=== PATIENT | male | born 1950 | race Caucasian/White ===

== ENCOUNTER 2017-05-12 02:25 | Inpatient (IN) | payer OTHER ==
[2017-05-12] VITALS (7 sets, daily range): BP systolic 117–173; BP diastolic 66–107
[~2017-05-12] VITALS: Ht 175.3 cm; Wt 81.6 kg
--- NOTE | 2017-05-12 03:20 | NUR ---
PRE-ADMISSION VS BP- 136/92 - T- 97.8 P- 96 R-18 PA-11/29 . SpO2 AT 96% IN RA . PATIENT IN INTAKE. AMBULATORY WITH STEADY GAIT. SPEECH IS CLEAR AND ANSWER QUESTIONS APPROPRIATELY. NO KNOWN ALLERGIES. NO SEIZURE HISTORY. PATIENT STATES HE'S HERE FOR OXYCODONE AND ALCOHOL (WHITE WINE). WILL CONTINUE ADMISSION ON 3RD FLOOR
--- NOTE | 2017-05-12 03:43 | NUR ---
ADMISSION NOTE PATIENT IS A 69 YEAR OLD MALE WHO PRESENTS TO [facility] FOR SUPERVISED WITHDRAWAL FROM ETOH/OPIOID DEPENDENCE. HEIGHT IS 5'9 AND WEIGHT IS 180 LBS. BODY CHECK DONE , NO SKIN BREAKDOWN, SKIN INTACT. LUNGS CLEAR AND ABDOMEN SOFT AND BOWEL SOUNDS ACTIVE. RESPIRATION EVEN AND UNLABORED. NO SOB. PATIENT REQUESTED TO BE FULL CODE AND ON VEGAN DIET. HE STATES THAT THIS IS FIRST TIME IN TREATMENT. 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 HE DOES NOT HAVE PCP. PATIENT REPORTS PMH OF SURGERY ON RIGHT BIG TOE. NO SEIZURE HISTORY. SUBSTANCE HISTORY: 1.ALCOHOL (WHITE WINE )- STARTED DRINKING WHEN HE WAS 19 YEARS OLD. HE IS DRINKING 1 BOTTLE DAILY FOR 2 YEARS. LAST DRINKS WAS 3-4 SMALL BOTTLES OF WHITE WINE BEFORE ADMISSION 2.OXYCODONE 5 MG - STARTED USING 2 YEARS AGO. HE TAKES 1 TAB OF 5 MG OCCASIONALLY FOR 2 YEARS. LAST USE WAS 1 TAB OF 5 MG ON 05/08/17 PATIENT DENIES SI/HI. PATIENT SMOKES 1/2 PACK OF CIGARETTE DAILY. PATIENT MODERATELY ANXIOUS, NOTED IRRITABLE , AGITATED C/O RESTLESS LEGS , GENERALIZED BODY ACHES /10, NO N/V. COWS 9 AND CIWA 8. PATIENT REFUSED PNEUMONIA AND FLU VACCINE, EDUCATE PATIENT AND RISKS/BENEFITS EXPLAINED BUT STILL REFUSED. PATIENT ORIENTED TO SURROUNDINGS AND HOW TO USE CALL LIGHT. ON SAFETY MEASURES IN PLACE. CALL LIGHT IN REACH. WILL CONTINUE TO MONITOR.
[2017-05-12] MEDS ORDERED: ONDANSETRON ODT 4 MG TAB.RAPDIS SL PRN (04:00)
[2017-05-12] MEDS ORDERED: LORAZEPAM 2 MG/1 ML VIAL IM PRN (04:00)
[2017-05-12] MEDS ORDERED: THIAMINE HCL 200 MG/2 ML VIAL IM ONE (04:00)
[2017-05-12] MEDS ORDERED: MAG HYDROX/AL HYDROX/SIMETH 30 ML LIQUID UDC PO PRN (04:00)
[2017-05-12] MEDS ORDERED: ONDANSETRON 4 MG/2 ML VIAL IM PRN (04:00)
[2017-05-12] MEDS ORDERED: DICYCLOMINE HCL 20 MG TABLET PO PRN (04:00)
[2017-05-12] MEDS ORDERED: BUPRENORPHINE HCL 2 MG TAB.SUBL SL PRN (04:00)
[2017-05-12] MEDS ORDERED: LORAZEPAM 1 MG TABLET PO PRN (04:00)
[2017-05-12] MEDS ORDERED: MAGNESIUM HYDROXIDE 30 ML LIQUID UDC PO PRN (04:00)
[2017-05-12] MEDS ORDERED: LOPERAMIDE HCL 2 MG CAPSULE PO PRN ×2 (04:00)
[2017-05-12] MEDS ORDERED: MIRALAX 17 GM POWD.PACK PO PRN (04:00)
[2017-05-12 04:34] LABS: *AMPHETAMINE, URINE NEGATIVE (NEGATIVE); *BARBITURATE, URINE NEGATIVE (NEGATIVE); *CANNABINOID, URINE NEGATIVE (NEGATIVE); *COCCAINE, URINE NEGATIVE (NEGATIVE); *OPIATE, URINE NEGATIVE (NEGATIVE); *PHENCYCLIDINE SCREEN,URINE NEGATIVE (NEGATIVE)
[2017-05-12 04:50] LABS: BILIRUBIN,TOTAL 0.3 mg/dL (0.2-1.0); CREATININE 0.8 mg/dL (0.6-1.3); MAGNESIUM 2.2 mg/dL (1.8-2.4); TOTAL PROTEIN, SERUM 7.4 g/dL (6.4-8.2)
[2017-05-12] MEDS: METHOCARBAMOL 750 MG TABLET PO PRN ×2 (04:52→14:21)
[2017-05-12] MEDS: LORAZEPAM 1 MG TABLET PO PRN ×2 (04:52→12:19)
[2017-05-12] MEDS: diphenhydrAMINE 50 MG CAPSULE PO PRN ×2 (04:52→20:35)
--- NOTE | 2017-05-12 04:52 | NUR ---
PRN ATIVAN, BENADRYL AND ROBAXIN ADMINISTRATION PATIENT MODERATELY ANXIOUS, NOTED IRRITABLE , AGITATED C/O RESTLESS LEGS , GENERALIZED BODY ACHES 7/10, NO N/V AND REQUESTED FOR SLEEP AID, COWS 9 AND CIWA 8.
[2017-05-12 05:01] LABS: THYROID STIMULATING HORMONE 1.286 mIU/mL (0.358-3.740)
[2017-05-12] MEDS ORDERED: diphenhydrAMINE 50 MG CAPSULE ONE (05:05)
[2017-05-12] MEDS ORDERED: METHOCARBAMOL 750 MG TABLET ONE (05:06)
[2017-05-12] MEDS ORDERED: LORAZEPAM 1 MG TABLET ONE (05:06)
[2017-05-12 05:10] LABS: BASOPHILS % (AUTO) 0.6 % (0.0-2.0); EOSINOPHILS # (AUTO) 0.2 K/uL (0.0-0.7); EOSINOPHILS % (AUTO) 2.8 % (0.0-7.0); HEMATOCRIT 42.5 % (36.7-47.1); HEMOGLOBIN 14.6 g/dL (12.5-16.3); LYMPHOCYTES # (AUTO) 2.3 K/uL (20.0-40.0); LYMPHOCYTES % (AUTO) 36.7 % (20.5-51.5); MEAN CORPUSCULAR HEMOGLOBIN 35.6 uug (23.8-33.4); MEAN CORPUSCULAR HGB CONC 34 g/dL (32.5-36.3); MEAN CORPUSCULAR VOLUME 103.7 fL (73.0-96.2); MONOCYTES # (AUTO) 0.4 K/uL (2.0-10.0); MONOCYTES % (AUTO) 7.1 % (0.0-11.0); NEUTROPHILS # (AUTO) 3.3 K/uL (1.8-8.9); NEUTROPHILS % (AUTO) 52.8 % (38.5-71.5); PLATELET COUNT (AUTO) 184 K/uL (152-348); WHITE BLOOD COUNT (AUTO) 6.3 K/uL (3.6-10.2)
--- NOTE | 2017-05-12 05:52 | NUR ---
JEREMY BIRD AND ALLEN RE-ASSESSMENT PATIENT ASLEEP AT THIS TIME . CIWA DEFERRED. NO FACIAL GRIMACING. RESPIRATION EVEN AND UNLABORED. SAFETY MEASURES IN PLACE. CALL LIGHT IN REACH. WILL CONTINUE TO MONITOR.
--- NOTE | 2017-05-12 07:21 | NUR ---
END OF SHIFT NOTE PATIENT SLEPT 1 HOUR. FLUID INTAKE OF 500 ML. VOIDED X 1. NO BM. PATIENT WAS GIVEN PRN ATIVAN , ROBAXIN AND BENADRYL. PATIENT REFUSED THIAMINE INJECTION, PNEUMONIA AND FLU VACCINE. EDUCATION PROVIDED REGARDING VACCINE REFUSAL. LAST COWS 9 AND CIWA 8, UPON ADMISSION. ON FALL/SEIZURE PRECAUTION. SAFETY MEASURES IN PLACE CALL LIGHT IN REACH. WILL CONTINUE TO MONITOR.
[2017-05-12] MEDS: MULTIVITAMINS,THERAPEUTIC TABLET PO SCH (08:41)
[2017-05-12] MEDS: FOLIC ACID 1 MG TABLET PO SCH (08:41)
[2017-05-12] MEDS: THIAMINE HCL 100 MG TABLET PO SCH (08:41)
--- NOTE | 2017-05-12 08:41 | NUR ---
PRN ATIVAN Patient's CIWA is 16. PRN ativan 2mg po tabs given. Will continue to monitor patient.
--- NOTE | 2017-05-12 08:45 | NUR ---
START OF SHIFT Received report from rn shift mgr nurse. Patient is 69 year old male admitted for medically supervised withdrawal from alcohol. Patient is full code with NKA. On assessment this AM: CIWA: 16 and COWS: 11. Denies SOB, chest pain. Patients vitals signs WNL. Patient reports increased anxiety and agitation, restlessness, sweating, body aches, and tactile disturbances. Denies stuffy nose, tremors, nausea, vomiting, diarrhea, goosebumps, auditory or visual hallucinations at this time. Compliant with AM meds. PRN Ativan 2mg po tab given with CIWA 16. PPD skin test performed on , to be read on 05/14/17. Tolerated breakfast without n/v and consumed about 50%. Encouraged to attend group meetings today. Will continue to monitor patient. Addendum: 05/12/17 at 1209 by SHU MCCORMACK RN Correction: patient has tremors.
[2017-05-12] MEDS ORDERED: TUBERCULIN,PURIF.PROT.DERIV. 5 TU/0.1 ML TEST ID ONE (09:00)
--- NOTE | 2017-05-12 09:41 | NUR ---
DEFER CIWA REASSESSMENT Patient noted asleep with eyes closed, breathing unlabored. Defer CIWA reassessment at this time.
--- NOTE | 2017-05-12 12:19 | NUR ---
PRN ATIVAN Patient's CIWA IS 12. PRN Ativan 1mg po tab was given. Will continue to monitor patient.
--- NOTE | 2017-05-12 13:19 | NUR ---
REASSESSMENT PRN ATIVAN Greg's CIWA is 8, med effective.
[2017-05-12] MEDS: HYDROXYZINE PAMOATE 25 MG CAPSULE PO PRN (14:21)
--- NOTE | 2017-05-12 14:21 | NUR ---
PRN VITARIL AND ROBAXIN Patinet complains of anxiety and body aches. PRN vistaril and robaxin given.
[2017-05-12] MEDS: LORAZEPAM 1 MG TABLET PO SCH ×3 (14:22→20:35)
[2017-05-12] MEDS ORDERED: GRAP50CA5 PO (14:33)
[2017-05-12] MEDS ORDERED: CYAN-28 PO (14:36)
[2017-05-12] MEDS ORDERED: NEO/5DRO3 EACHEYE (14:36)
[2017-05-12] MEDS ORDERED: LORAZEPAM 1 MG TABLET PO SCH (15:00)
--- NOTE | 2017-05-12 15:21 | NUR ---
REASSESSMENT VISTARIL AND ROBAXIN Patient reports anxiety improved and body aches decreased.
--- NOTE | 2017-05-12 19:00 | NUR ---
Patient reports he has no medical history.
--- NOTE | 2017-05-12 19:27 | NUR ---
END OF SHIFT Patient is 69 year old male admitted for medically supervised withdrawal from alcohol. Patient is full code with NKA. On Ativan taper. Most recent CIWA: 10 and COWS: 9. Reports anxiety, body aches, tremors, tingling sensation. PRN Ativan, vistaril and robaxin given this shift. Ambulating with unsteady gait, uses wheelchair, no falls noted. BM X2 reported with semi liquid, refused prn loperamide when offered. 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
--- NOTE | 2017-05-12 19:30 | NUR ---
Start of Shift Note: Report received from day shift nurse. Pt is 69M, admitted for ETOH Dependence on 05/12/17. Pt was in room on the bed with eyes closed upon start of shift. Pt is AOx4 without s/s of acute distress noted. Respirations even and unlabored. Pt is full code, on regular diet, and on fall/seizure precautions. Pt noted with NKA. Pt reports hx of sx on R big toe. Pt is currently on Ativan taper to manage withdrawal symptoms. Per day shift nurse, last CIWA was 9 at 1600. Bed in lowest position. Side rails up x2. Call light functioning and within reach. All needs attended and met. Will continue to monitor.
--- NOTE | 2017-05-12 20:35 | NUR ---
PRN Benadryl: Pt requested medication to help him sleep. PRN Ativan given as ordered.
[2017-05-12] MEDS: IBUPROFEN 600 MG TABLET PO PRN (22:57)
--- NOTE | 2017-05-12 23:00 | NUR ---
PRN Motrin: Pt c/o headache and general body pain. Pain level 9/10. Pt requested medication for pain. 600mg Motrin PO PRN given as ordered.
[2017-05-13] VITALS (8 sets, daily range): BP systolic 130–190; BP diastolic 93–123
--- NOTE | 2017-05-13 | NUR ---
PRN Motrin Reassessment: Pt stated relief from headache but still complaining of generalized body pain. Pain level 7/10. Will administer PRN medication shortly after taking vitals.
[2017-05-13] MEDS: ACETAMINOPHEN 325 MG TABLET PO PRN ×2 (00:26→08:50)
[2017-05-13] MEDS: METHOCARBAMOL 750 MG TABLET PO PRN ×2 (00:27→08:50)
--- NOTE | 2017-05-13 00:30 | NUR ---
Ativan, Tylenol, and Robaxin PRN: Pt noted with CIWA 13 upon assessment. Ativan 1mg PO PRN given as ordered. Pt c/o generalized body pain. Tylenol and Robaxin PRN given as ordered.
[2017-05-13] MEDS: LORAZEPAM 1 MG TABLET PO PRN (00:33)
--- NOTE | 2017-05-13 01:30 | NUR ---
Ativan, Tylenol, and Robaxin Reassessment: Pt in bed with eyes closed. Respirations even and unlabored. Unable to reassess medication effectiveness. Will continue to monitor.
--- NOTE | 2017-05-13 07:09 | NUR ---
End of Shift Note: Pt is 39M, admitted for Suboxone/Benzo Dependence on 05/11/17. Pt is AOx4 without s/s of acute distress noted. Respirations even and unlabored. Pt is full code, on regular diet, and on fall/seizure precautions. Pt noted with allergy to Penicillins. Pt reports hx of Schizophrenia, Bipolar, and ADHD. Pt is currently on Phenobarbital and Subutex tapers to manage withdrawal symptoms. Last CIWA was 5 at 0400. Pt slept for 8 hours. Pt c/o headache, generalized body pain and inability to sleep. PRN Benadryl, Motrin, Tylenol and Robaxin given and were effective. Bed in lowest position. Side rails up x2. Call light functioning and within reach. All needs attended and met. Will continue to monitor.
--- NOTE | 2017-05-13 07:30 | NUR ---
START OF SHIFT Pt 69 y/o male admitted for etoh/ opioid dependence. Pt received in room on bed with eyes closed resting, but easily arousable to name. Pt alert and oriented to name, place, and time. Perrla. Skin warm and slightly moist to touch. Respirations even and unlabored. Bilateral hand tremors noted slightly. It was reported that pt slept for 8 hours last night. Bed on lowest position with side rails x2 up. Call light within reach. No distress noted at this time.
[2017-05-13] MEDS: THIAMINE HCL 100 MG TABLET PO SCH (08:50)
[2017-05-13] MEDS: MULTIVITAMINS,THERAPEUTIC TABLET PO SCH (08:50)
[2017-05-13] MEDS: FOLIC ACID 1 MG TABLET PO SCH (08:51)
--- NOTE | 2017-05-13 08:55 | NUR ---
PRN Pt with c/o back pain 01/30. Tylenol po prn per MD order given and tolerated well.
--- NOTE | 2017-05-13 08:56 | NUR ---
PRN Pt with c/o body aches 12/30. Robaxin po prn per MD order given and tolerated well.
[2017-05-13] MEDS ORDERED: LORAZEPAM 1 MG TABLET PO SCH (09:00)
--- NOTE | 2017-05-13 09:55 | NUR ---
PRN MARY KATE Pt states body pain 07/30
--- NOTE | 2017-05-13 09:56 | NUR ---
PRN EVAL Pt states body aches 07/30.
[2017-05-13 10:07] LABS: HEPATITIS B SURFACE AG Negative (Negative)
[2017-05-13] MEDS: HYDROXYZINE PAMOATE 25 MG CAPSULE PO PRN (11:52)
--- NOTE | 2017-05-13 11:54 | NUR ---
PRN Pt states feels anxious. Vistaril po prn per MD order given and tolerated well.
--- NOTE | 2017-05-13 12:54 | NUR ---
PRN EVAL Pt still appears anxious. MD aware with changes to ativan taper noted.
[2017-05-13] MEDS: LORAZEPAM 1 MG TABLET PO SCH ×3 (12:58→20:19)
[2017-05-13] MEDS: hydrALAZINE HCL 50 MG TABLET PO PRN (14:06)
[2017-05-13] MEDS: IBUPROFEN 600 MG TABLET PO PRN (14:06)
--- NOTE | 2017-05-13 14:07 | NUR ---
PRN Pt with fd=901/113 p=105. Hydralazine po prn per MD order given and tolerated well.
--- NOTE | 2017-05-13 14:09 | NUR ---
PRN Pt with c/o headache 10/30. Motrin po prn per MD order given and tolerated well.
--- NOTE | 2017-05-13 15:09 | NUR ---
PRN EVAL Pt states headache 07/02
--- NOTE | 2017-05-13 16:47 | NUR ---
Therapist prompted client to attend daily group therapy sessions. Client stated that she would attend.
[2017-05-13] MEDS ORDERED: CLONIDINE HCL 0.1 MG TABLET PO ONE (17:30)
[2017-05-13] MEDS ORDERED: LORAZEPAM 1 MG TABLET PO ONE (17:30)
--- NOTE | 2017-05-13 17:41 | NUR ---
PRN Pt with ciwa=9. notified with new order for ativan 1mg po x1 dose noted and carried out.
--- NOTE | 2017-05-13 17:44 | NUR ---
PRN Pt with in=090/104. aware with new order for catapres 0.1mg po x1 dose , noted and carried out.
--- NOTE | 2017-05-13 18:39 | NUR ---
END OF SHIFT Pt 69 y/o male admitted for etoh/ opioid dependence. Pt alert and oriented to name, place, and time. Perrla. Skin warm and slightly moist to touch. Respirations even and unlabored. Bilateral hand tremor noted. Pt with periods of anxiety throughout the day. Pt observed mostly in recreation room throughout the day. Pt selective with group activity. Pt was seen by MD today. Pt medication compliant and tolerated well. No ASE noted. Bed on lowest position with side rails x2 up for safety. Call light within reach. No distress noted at this time.
--- NOTE | 2017-05-13 18:41 | NUR ---
PRN EVAL Pt with ciwa=4 noted.
--- NOTE | 2017-05-13 18:44 | NUR ---
PRN EVAL Pt with qx=459/99 p=93. made aware.
[2017-05-13] MEDS ORDERED: LABETALOL HCL 100 MG TABLET PO ONE ×2 (19:00→19:15)
--- NOTE | 2017-05-13 19:00 | NUR ---
ONE TIME MD aware of pt kj=277/99 with new order for labetalol 100mg po x1 dose noted and carried out.
--- NOTE | 2017-05-13 20:00 | NUR ---
START OF SHIFT NOTE RECEIVED REPORT FROM DAY SHIFT NURSE. PATIENT IS A 69 YEAR OLD MALE ADMITTED FOR ETOH/OPIOID DEPENDENCE. PATIENT IS ON 4 DAY ATIVAN TAPER. NO SEIZURE HISTORY. PATIENT WAS HYPERTENSIVE DURING THE DAY. PRN HYDRALAZINE, LABETALOL AND CLONIDINE GIVEN. LATEST BP-155/99. PRN TYLENOL, ROBAXIN ,VISTARIL AND ONE TIME ATIVAN. LAST CIWA 4. RECEIVED PATIENT ALERT AND ORIENTED X 4. PATIENT REPORTS ANXIETY, SWEATING AND NOTED WITH TREMORS. NO N/V. DENIES ANY PAIN AT THIS TIME. WILL CONTINUE TO MONITOR.
[2017-05-13] MEDS: diphenhydrAMINE 50 MG CAPSULE PO PRN (22:44)
--- NOTE | 2017-05-13 22:44 | NUR ---
PRN BENADRYL ADMINISTRATION PATIENT REQUESTS FOR SLEEP AID. WILL CONTINUE TO MONITOR .
--- NOTE | 2017-05-13 23:44 | NUR ---
BARBARA LUNA RE-ASSESSMENT PATIENT IN BED WITH HIS EYES CLOSED. RESPIRATION EVEN AND UNLABORED. WILL CONTINUE TO MONITOR.
[2017-05-14] VITALS (8 sets, daily range): BP systolic 106–168; BP diastolic 73–111
--- NOTE | 2017-05-14 | NUR ---
CIWA DEFERRED PATIENT SLEEPING. CIWA DEFERRED. RESPIRATION EVEN AND UNLABORED. SAFETY MEASURES IN PLACE. CALL LIGHT IN REACH. WILL CONTINUE TO MONITOR
--- NOTE | 2017-05-14 04:00 | NUR ---
CIWA DEFERRED PATIENT SLEEPING. CIWA DEFERRED. RESPIRATION EVEN AND UNLABORED. SAFETY MEASURES IN PLACE. CALL LIGHT IN REACH. WILL CONTINUE TO MONITOR
[2017-05-14] MEDS: IBUPROFEN 600 MG TABLET PO PRN ×3 (05:02→20:19)
[2017-05-14] MEDS: METHOCARBAMOL 750 MG TABLET PO PRN ×3 (05:02→22:11)
[2017-05-14] MEDS: HYDROXYZINE PAMOATE 25 MG CAPSULE PO PRN (05:02)
--- NOTE | 2017-05-14 05:02 | NUR ---
PRN VISTARIL, MOTRIN AND ROBAXIN ADMINISTRATION PATIENT C/O ANXIETY AND GENERALIZED BODY ACHES 10/30. WILL MONITOR FOR EFFECTIVENESS
--- NOTE | 2017-05-14 06:02 | NUR ---
PRN VISTARIL, MOTRIN AND ROBAXIN RE-ASSESSMENT PATIENT IN BED WITH HIS EYES CLOSED. RESPIRATION EVEN AND UNLABORED. WILL CONTINUE TO MONITOR
--- NOTE | 2017-05-14 07:22 | NUR ---
END OF SHIFT NOTE PATIENT CONTINUE ON ATIVAN TAPER FOR ETOH/OPIOID DEPENDENCE, TOLERATED WELL AND NO ADVERSE REACTION. PATIENT COMPLIANT WITH MEDICATIONS AND TREATMENT PLAN. PATIENT WAS GIVEN PRN BENADRYL FOR SLEEP AT 2244. PATIENT WOKE UP AT 0502 AND REPORTS ANXIETY AND GENERALIZED BODY ACHES 10/30, PRN VISTARIL , ROBAXIN AND MOTRIN GIVEN. WILL CONTINUE TO MONITOR. SLEPT 8 HOURS. FLUID INTAKE 796 ML. VOIDED X 1 . NO BM. LAST CIWA 5.
[2017-05-14] MEDS: FOLIC ACID 1 MG TABLET PO SCH (08:09)
[2017-05-14] MEDS: LORAZEPAM 1 MG TABLET PO SCH ×3 (08:09→20:18)
[2017-05-14] MEDS: THIAMINE HCL 100 MG TABLET PO SCH (08:09)
[2017-05-14] MEDS: MULTIVITAMINS,THERAPEUTIC TABLET PO SCH (08:09)
--- NOTE | 2017-05-14 08:15 | NUR ---
START OF SHIFT: RECEIVED PT A/O X 4. HE PRESENTS WITH ANXIOUS MOOD AND CONGRUENT AFFECT.HE C/O ANXIETY,RESTLESSNESS AND IRRITABILITY. CIWA 8. ATIVAN TAPER IN PROGRESS TO MANAGE S/S OF W/D. ENCOURAGED INCREASED FLUIDS TO ASSIST IN FACILITATING DETOX PROCESS.WILL CONTINUE TO MONITOR.
[2017-05-14] MEDS ORDERED: LORAZEPAM 1 MG TABLET PO SCH (09:00)
[2017-05-14 09:39] LABS: BILIRUBIN,DIRECT 0.1 mg/dL (0.0-0.2); BILIRUBIN,TOTAL 0.6 mg/dL (0.2-1.0); TOTAL PROTEIN, SERUM 7.5 g/dL (6.4-8.2)
[2017-05-14] MEDS ORDERED: LORAZEPAM 1 MG TABLET PO PRN ×2 (12:00)
[2017-05-14] MEDS: hydrALAZINE HCL 50 MG TABLET PO PRN (12:24)
--- NOTE | 2017-05-14 12:31 | NUR ---
PRN MOTRIN AND PRN ROBAXIN GIVEN FOR REPORTED LOWER BACK PAIN 5/10 ON PAIN SCALE WILL MONITOR EFFECTIVENESS. PRN APRESOLINE GIVEN FOR ELEVATED BP. WILL MONITOR EFFECTIVENESS
[2017-05-14] MEDS ORDERED: PENICILLIN G BENZATHINE 2.4 MMU/4 ML DISP.SYRIN IM ONE (13:00)
--- NOTE | 2017-05-14 13:35 | NUR ---
PRN ROBAXIN AND MOTRIN EFFECTIVE. PT STATES PAIN IS 3/10 ON SCALE.
[2017-05-14] MEDS: ACETAMINOPHEN 325 MG TABLET PO PRN (14:34)
[2017-05-14] MEDS: GABAPENTIN 300 MG CAPSULE PO SCH ×2 (14:34→20:19)
--- NOTE | 2017-05-14 18:52 | NUR ---
END OF SHIFT: PT CONTINUES ON ATIVAN TAPER TO MANAGE S/S OF W/D.LAST CIWA 6. PT IS TREMULOUS AND HAD SOME INTERMITTENT ANXIETY THROUGHOUT THE DAY. HE ALSO C/O LOWER BACK PAIN. MOTRIN AND ROBAXIN PRN GIVEN AND MILDLY EFFECTIVE. HE WAS COMPLIANT WITH REST AND FLUIDS. WILL PASS SHIFT REPORT TO NIGHT NURSE.
--- NOTE | 2017-05-14 20:00 | NUR ---
START OF SHIFT NOTE RECEIVED REPORT FROM DAY SHIFT NURSE. PATIENT IS A 69 YEAR OLD MALE ADMITTED FOR ETOH/OPIOID DEPENDENCE. PATIENT CONTINUE ON MODIFIED ATIVAN TAPER . NO SEIZURE HISTORY. PATIENT ANXIOUS AT TIMES DURING THE DAY AND HYPERTENSIVE. PRN APRESOLINE GIVEN . NEW ORDER OF LABETALOL. PRN GIVEN PRN ROBAXIN AND MOTRIN. RECEIVED PATIENT ALERT AND ORIENTED X 4. RESPIRATION EVEN AND UNLABORED. PATIENT REPORTS ANXIETY, SWEATING, RESTLESS LEGS, NO N/V. ON FALL/SEIZURE PRECAUTION. SAFETY MEASURES IN PLACE. CALL LIGHT IN REACH. WILL CONTINUE TO MONITOR.
--- NOTE | 2017-05-14 20:19 | NUR ---
PRN MOTRIN ADMINISTRATION PATIENT C/O GENERALIZED BODY ACHES 11/29. WILL MONITOR FOR EFFECTIVENESS
[2017-05-14] MEDS ORDERED: AMLODIPINE 5 MG TABLET PO SCH (21:00)
[2017-05-14] MEDS ORDERED: LABETALOL HCL 100 MG TABLET PO SCH (21:00)
--- NOTE | 2017-05-14 21:19 | NUR ---
PRN MOTRIN RE-ASSESSMENT PATIENT STATES MOTRIN IS HELPFUL , PAIN LEVEL IS 3/10 AT THIS TIME. WILL CONTINUE TO MONITOR.
[2017-05-14] MEDS: diphenhydrAMINE 50 MG CAPSULE PO PRN (22:11)
--- NOTE | 2017-05-14 22:11 | NUR ---
PRN ROBAXIN AND BENADRYL ADMINISTRATION PATIENT C/O RESTLESS LEGS AND REQUESTS FOR SLEEP AID. WILL MONITOR FOR EFFECTIVENESS
--- NOTE | 2017-05-14 23:11 | NUR ---
BARBARA LUNA AND ALLEN RE-ASSESSMENT PATIENT IN BED WITH EYES CLOSED. RESPIRATION EVEN AND UNLABORED. WILL CONTINUE TO MONITOR
[2017-05-15] VITALS (7 sets, daily range): BP systolic 119–152; BP diastolic 67–109
--- NOTE | 2017-05-15 | NUR ---
CIWA DEFERRED PATIENT SLEEPING. CIWA DEFERRED. RESPIRATION EVEN AND UNLABORED. SAFETY MEASURES IN PLACE. CALL LIGHT IN REACH. WILL CONTINUE TO MONITOR.
--- NOTE | 2017-05-15 04:00 | NUR ---
CIWA DEFERRED PATIENT SLEEPING. CIWA DEFERRED. RESPIRATION EVEN AND UNLABORED. SAFETY MEASURES IN PLACE. CALL LIGHT IN REACH. WILL CONTINUE TO MONITOR.
--- NOTE | 2017-05-15 07:14 | NUR ---
START OF SHIFT NOTE PATIENT SLEPT 7 HOURS. FLUID INTAKE 1,355 ML. VOIDED X 3. NO BM. PATIENT C/O ANXIETY, RESTLESS LEGS, SWEATING , TREMORS ANS GENERALIZED BODY ACHES BEGINNING OF SHIFT. PATIENT CONTINUE ON ATIVAN TAPER TO MANAGE WITHDRAWAL SYMPTOMS , TOLERATED WELL AND NO ADVERSE REACTION. PRN MOTRIN WAS GIVEN AT FOR GENERALIZED PAIN , ROBAXIN FOR RESTLESS LEGS AND BENADRYL FOR SLEEP. NEW ORDER OF PRN LABETALOL. PATIENT WAS NOT HYPERTENSIVE DURING SHIFT . ON FALL/SEIZURE PRECAUTION. SAFETY MEASURES IN PLACE. CALL LIGHT IN REACH. WILL CONTINUE TO MONITOR
--- NOTE | 2017-05-15 07:25 | NUR ---
START OF SHIFT Rcvd endorsement from ongoing nurse, client is in room, he is a.o x 4, he presents with anxious mood, flat affect, he reports generalized body aches, and muscle pain on lower extremities 9/10, restless legs, irritability, sweats, and a decreased in appetite. Encourage client to increase PO fluid intake as tolerated to facilitate detox. Encourage to attend group therapy for skills to maintain sober. Client is a 70 y/o male admitted to [facility] for withdrawal from alcohol, he is on a 5 day Ativan taper, tolerating well, (day 4). Client reports NKA, Full code, and vegetarian lactoovo diet. Side rails x 2 up/padded. Bed in lowest/locked position. Call light within reach.
[2017-05-15] MEDS: METHOCARBAMOL 750 MG TABLET PO PRN (07:31)
[2017-05-15] MEDS: IBUPROFEN 600 MG TABLET PO PRN ×2 (07:31→20:38)
--- NOTE | 2017-05-15 07:31 | NUR ---
PRN Motrin 600mg PO, Robaxin 750mg PO administered for generalized body aches and muscle pain 01/30. Call light within reach.
[2017-05-15] MEDS: GABAPENTIN 300 MG CAPSULE PO SCH (08:06)
[2017-05-15] MEDS: MULTIVITAMINS,THERAPEUTIC TABLET PO SCH (08:06)
[2017-05-15] MEDS: FOLIC ACID 1 MG TABLET PO SCH (08:06)
[2017-05-15] MEDS: THIAMINE HCL 100 MG TABLET PO SCH (08:06)
[2017-05-15] MEDS: AMLODIPINE 5 MG TABLET PO SCH (08:07)
[2017-05-15] MEDS: LORAZEPAM 1 MG TABLET PO SCH ×4 (08:07→20:38)
--- NOTE | 2017-05-15 08:31 | NUR ---
Reassessment PRN Motrin 600mg PO, Robaxin 750mg PO, he reports relief from generalized body aches and muscle pain 2/10, but tolerable. Call light within reach.
--- NOTE | 2017-05-15 08:44 | NUR ---
Zero induration noted at R forearm TB site
[2017-05-15] MEDS ORDERED: LORAZEPAM 1 MG TABLET PO SCH (09:00)
[2017-05-15] MEDS: ACETAMINOPHEN 325 MG TABLET PO PRN (10:38)
--- NOTE | 2017-05-15 10:38 | NUR ---
PRN Tylenol 650mg PO administered for lower back pain 11/29. Call light within reach.
--- NOTE | 2017-05-15 11:38 | NUR ---
Reassessment PRN Tylenol 650mg PO, client reports relief from lower back pain 0/10. Call light within reach.
[2017-05-15] MEDS ORDERED: KETOROLAC TROMETHAMINE 30 MG INJ IM PRN (12:15)
[2017-05-15] MEDS: hydrALAZINE HCL 50 MG TABLET PO PRN (12:22)
--- NOTE | 2017-05-15 12:22 | NUR ---
PRN Hydralazine 50mg PO administered for BP 152/109, client denies any SCHAEFER or dizziness. Call light within reach.
[2017-05-15] MEDS ORDERED: CYANOCOBALAMIN 1000 MCG/ML VIAL IM ONE (13:00)
--- NOTE | 2017-05-15 13:22 | NUR ---
Reassessment PRN Hydralazine 50mg PO BP 138/94. Call light within reach.
[2017-05-15] MEDS: GABAPENTIN 400 MG CAPSULE PO SCH ×2 (14:34→20:37)
[2017-05-15] MEDS: KETOROLAC TROMETHAMINE 15 MG INJ IM PRN (16:46)
--- NOTE | 2017-05-15 16:46 | NUR ---
PRN Toradol 15mg Inj IM administered to L deltoid for lower back pain 03/01. Call light within reach.
--- NOTE | 2017-05-15 17:16 | NUR ---
Reassessment PRN Toradol 15mg Inj IM client reports relief from lower back pain 2/10, but tolerable. Call light within reach.
--- NOTE | 2017-05-15 19:30 | NUR ---
END OF SHIFT Client is a 70 y/o male, he is a/o X 4, admitted to [facility] for withdrawal from alcohol, he is on a 5 day Ativan taper, tolerating well, (day 4). VTE 2, IPCD at bedside, client is compliant with therapy. PRN Motrin 600mg PO, Robaxin 750mg PO administered for generalized body aches and muscle pain 01/30. Tylenol 650mg PO administered for lower back pain 11/29. Hydralazine 50mg PO administered for BP 152/109, Toradol 15mg Inj IM administered to L deltoid for lower back pain 03/01, noted effective. Client is compliant with medication administration and group therapy. Adequate PO fluid intake 2300mL, void x 5, stool x 1. Client consumes 75-100% of meals. Client reports NKA, Full code, and vegetarian lactoovo diet. Side rails x 2 up/padded. Bed in lowest/locked position. Call light within reach.
--- NOTE | 2017-05-15 19:31 | NUR ---
START OF SHIFT Pt is a 69 y/o male admitted on 05/12/17 for ETOH dependence and occasional oxycodone use. Pt was dependent on 1 bottle of white wine daily for 2 years. Pt is full code, vegan diet, NKA and on fall/seizure precautions. No reported seizure history. No significant PMH. Pt is on a modified Ativan taper that started on 05/15/17, tolerating well. Last CIWA 8 and PRN Toradol, Robaxin, Motrin, Tylenol and Hydralazine administered during day shift. Upon assessment pt presents with anxiety, restless legs, intermittent tremors, difficulty sleeping, increased HR and BP, fatigue, dysphoria and anhedonia. Pt also complains of chronic back pain 01/30. Pt has new order for Baclofen PRN. Medications due. Denies N/V/D. Denies chest pain or SOB. Respirations even and unlabored. Safety measures in place. Call light within reach. Will continue to monitor. Addendum: 05/15/17 at 2202 by JOSE MARTIN REESE RN PT IS A 67 Y/O MALE
[2017-05-15] MEDS: BACLOFEN 20 MG TABLET PO PRN (20:38)
[2017-05-15] MEDS: diphenhydrAMINE 50 MG CAPSULE PO PRN (20:38)
[2017-05-15] MEDS: CLONIDINE HCL 0.1 MG TABLET PO PRN (20:38)
--- NOTE | 2017-05-15 20:38 | NUR ---
PRN BACLOFEN, MOTRIN, BENADRYL AND CLONIDINE ADMINISTRATION Pt reports muscle spasms/pain in lower back and headache. Requests sleep aid for restlessness and insomnia. BP 140/95 and HR 91, orders to give Clonidine for BP 140-149/90-99. Safety measures in place. Call light within reach. Will continue to monitor.
--- NOTE | 2017-05-15 21:38 | NUR ---
PRN BACLOFEN, MOTRIN, BENADRYL AND CLONIDINE REASSESSMENT Pt reports improvement in back muscle spasms and headache. Pt is still awake, but states he is tired and will likely sleep soon. BP 131/77 and HR 83, Clonidine effective in reducing BP. Safety measures in place. Call light within reach. Will continue to monitor.
[2017-05-16] VITALS (8 sets, daily range): BP systolic 111–159; BP diastolic 66–103
--- NOTE | 2017-05-16 | NUR ---
CIWA DEFERRED Pt laying in bed with eyes closed, CIWA deferred, to be assessed when pt is awake per orders. Respirations 16, even and unlabored. Safety measures in place. Call light within reach. Will continue to monitor.
--- NOTE | 2017-05-16 04:00 | NUR ---
CIWA DEFERRED AND VITALS REFUSED Pt laying in bed with eyes closed, CIWA deferred, to be assessed when pt is awake per orders. Vitals refused. Respirations 16, even and unlabored. Safety measures in place. Call light within reach. Will continue to monitor.
[2017-05-16] MEDS: HYDROXYZINE PAMOATE 25 MG CAPSULE PO PRN ×2 (04:54→22:38)
[2017-05-16] MEDS: ACETAMINOPHEN 325 MG TABLET PO PRN (04:54)
--- NOTE | 2017-05-16 05:02 | NUR ---
PRN VISTARIL AND TYLENOL ADMINISTRATION Pt reports he woke up and presents with anxiety. Pt also complains of lower back pain 11/29. Safety measures in place. Call light within reach. Will continue to monitor.
--- NOTE | 2017-05-16 06:02 | NUR ---
PRN VISTARIL AND TYLENOL REASSESSMENT Pt is laying in bed with eyes closed. Respirations 16, even and unlabored. Safety measures in place. Call light within reach. Will continue to monitor.
--- NOTE | 2017-05-16 07:17 | NUR ---
END OF SHIFT Pt is a 67 y/o male admitted on 05/12/17 for ETOH dependence and occasional oxycodone use. Pt was dependent on 1 bottle of white wine daily for 2 years. Pt is full code, vegan diet, NKA and on fall/seizure precautions. No reported seizure history. No significant PMH. Pt is on a modified Ativan taper that started on 05/15/17, tolerating well. VTE score 2, pumps in place. Pt presented with anxiety, restless legs, intermittent tremors, difficulty sleeping, increased HR and BP, fatigue, dysphoria and anhedonia. Pt also complained of chronic back pain 01/30. Scheduled medications and PRN Baclofen, Motrin, Benadryl, Tylenol, Vistaril and Clonidine administered, effective in S/S of withdrawal as verbalized by pt. Last CIWA 6 at 1999. Pt slept 9 hours. Intake 796 ml, void x 3, stool x 0. Safety measures in place. Call light within reach. Pts needs have been met. Endorsed to day shift nurse.
--- NOTE | 2017-05-16 07:18 | NUR ---
Start of Shift Notes: Received patient in his room. Alert and verbally responsive. Oriented x 4 Able to make his needs known. Respirations even and unlabored. No SOB noted. Skin warm and dry to touch. Abdomen soft and non-distended with (+) BS in all 4 quadrants. No complains of N/V/D or abdominal discomfort noted. Bladder non-distended. Voids independently. Ambulatory ad morgan with steady gait. Patient is a 67 year old male admitted for ETOH and opiate dependence who was placed on a modified Ativan taper as ordered. No adverse reactions noted. Has past medical hx of right big toe surgery. NKA. FULL CODE. Regular diet. On fall and seizure precautions. Educated patient on his current plan of care for the day and his medication regimen. On isolation due to influenza. Education provided. Encouraged oral fluid intake and encouraged group participation to learn new skills to prevent relapse. Will continue to monitor.
[2017-05-16] MEDS: AMLODIPINE 5 MG TABLET PO SCH (09:14)
[2017-05-16] MEDS: KETOROLAC TROMETHAMINE 15 MG INJ IM PRN ×2 (09:14→17:37)
[2017-05-16] MEDS: LORAZEPAM 1 MG TABLET PO SCH ×3 (09:14→21:10)
[2017-05-16] MEDS: GABAPENTIN 400 MG CAPSULE PO SCH ×3 (09:14→21:10)
[2017-05-16] MEDS: FOLIC ACID 1 MG TABLET PO SCH (09:14)
[2017-05-16] MEDS: MULTIVITAMINS,THERAPEUTIC TABLET PO SCH (09:14)
[2017-05-16] MEDS: BACLOFEN 20 MG TABLET PO PRN ×2 (09:14→21:10)
--- NOTE | 2017-05-16 09:14 | NUR ---
Baclofen 20 mg PO/Toradol 15 mg PO given: Patient noted with complain of 9/10 low back pain. Non-pharmacological interventions provided but ineffective. Medicated patient with Baclofen 20 mg PO and Toradol 15 mg PO as ordered. Will monitor for effectiveness.
[2017-05-16] MEDS: THIAMINE HCL 100 MG TABLET PO SCH (09:17)
--- NOTE | 2017-05-16 09:44 | NUR ---
Re-assessment: Toradol Per patient, PRN Toradol was effective in reducing pain. PL 5/10.
--- NOTE | 2017-05-16 10:14 | NUR ---
Re-assessment: Baclofen Per patient, PRN Baclofen was effective in reducing pain. PL 07/30.
[2017-05-16] MEDS: OSELTAMIVIR PHOSPHATE 75 MG CAPSULE PO SCH (14:08)
[2017-05-16] MEDS: hydrALAZINE HCL 50 MG TABLET PO PRN (14:08)
--- NOTE | 2017-05-16 14:08 | NUR ---
Hydralazine PO/Tamiflu given: Patient noted with BP 159/113, Pulse 100. Denies any complains of headache, dizziness and/or chest pain. Medicated patient with Hydralazine 25 mg PO as ordered. Will monitor for effectiveness. Tamiflu ordered by MD Silva for influenza prophylaxis. Patient is afebrile. No SOB noted. No cough. No congestion. No runny nose noted.
--- NOTE | 2017-05-16 15:08 | NUR ---
Re-assessment: Hydralazine Patient's blood pressure 139/93. Pulse 90. PRN Hydralazine was effective in reducing patient's blood pressure.
--- NOTE | 2017-05-16 17:37 | NUR ---
Toradol 15 mg IM given: Patient verbalizes 9/10 pain to lower legs. Non-pharmacological interventions were provided but ineffective. Medicated patient with Toradol 15 mg IM as ordered to right deltoid. Will continue to monitor for effectiveness.
--- NOTE | 2017-05-16 18:07 | NUR ---
Re-assessment: Toradol Patient verbalizes that pain level has decreased from 9/10 to 4/10. PRN Toradol effective in reducing pain to lower legs.
--- NOTE | 2017-05-16 18:59 | NUR ---
End of Shift Notes: Patient contnues to be on modified 5-day Ativan taper as ordered. No adverse reactions noted. VS monitored closely. On Norvasc as ordered. Withdrawal symptoms were closely monitored. Initial CIWA 5, patient presented with anxiety, agitation, sweats. Last CIWA 5. Per patient, Ativan has been effective in reducing patient's withdrawal symptoms. Medicated patient with Baclofen 20 mg PO and Toradol 15 mg IM for low back pain at 0914 and at 1737, Hydralazine at 1408. All given PRNs were effective after 1 hour. At Denies S/I or H/I. No AV hallucinations noted. Compliant with care and treatment. Participated in group and activities. All needs met and attended. Will continue to monitor closely.
--- NOTE | 2017-05-16 19:30 | NUR ---
START OF SHIFT Pt is a 67 y/o male admitted on 05/12/17 for ETOH dependence and occasional oxycodone use. Pt was dependent on 1 bottle of white wine daily for 2 years. Pt is full code, vegan diet, NKA and on fall/seizure precautions. No reported seizure history. No significant PMH. Pt is on a modified Ativan taper that started on 05/15/17, tolerating well. Last CIWA 5 and PRN Toradol x2, Robaxin, Baclofen and Hydralazine administered during day shift. Upon assessment pt presents with anxiety, restless legs, intermittent tremors, difficulty sleeping, increased HR and BP, fatigue, dysphoria and anhedonia. Pt also complains of chronic back pain 01/30. Medications due. Denies N/V/D. Denies chest pain or SOB. Respirations even and unlabored. Safety measures in place. Call light within reach. Will continue to monitor.
[2017-05-16] MEDS: diphenhydrAMINE 50 MG CAPSULE PO PRN (21:10)
--- NOTE | 2017-05-16 21:10 | NUR ---
PRN BACLOFEN, BENADRYL AND CLONIDINE ADMINISTRATION Pt presents with muscle spasms in lower back r/t chronic pain. Pt also requests sleep aid and presents with restlessness. BP 129/99 and HR 93, orders to give Clonidine for BP 140-149/90-99. Safety measures in place. Call light within reach. Will continue to monitor.
[2017-05-16] MEDS: CLONIDINE HCL 0.1 MG TABLET PO PRN (21:11)
--- NOTE | 2017-05-16 22:10 | NUR ---
PRN BACLOFEN, BENADRYL AND CLONIDINE REASSESSMENT Pt reports Baclofen was effective and states his back muscle spasms improved since he has been laying down. Pt remains awake but reports he is more fatigued. BP 111/38 and HR 78, Clonidine effective. Safety measures in place. Call light within reach. Will continue to monitor.
--- NOTE | 2017-05-16 22:38 | NUR ---
PRN VISTARIL ADMINISTRATION Pt presents with anxiety and restlessness. Safety measures in place. Call light within reach. Will continue to monitor.
--- NOTE | 2017-05-16 23:38 | NUR ---
PRN VISTARIL REASSESSMENT Pt states Vistaril was effective in reducing anxiety. Pt appears less anxious and restless. Safety measures in place. Call light within reach. Will continue to monitor.
[2017-05-17] VITALS: BP 113/76
--- NOTE | 2017-05-17 04:00 | NUR ---
CIWA DEFERRED AND VITALS REFUSED Pt is laying in bed with eyes closed, CIWA deferred, to be assessed when pt is awake per orders. Vitals refused. Respirations 16, even and unlabored. Safety measures in place. Call light within reach. Will continue to monitor.
--- NOTE | 2017-05-17 07:15 | NUR ---
END OF SHIFT Pt is a 67 y/o male admitted on 05/12/17 for ETOH dependence and occasional oxycodone use. Pt was dependent on 1 bottle of white wine daily for 2 years. Pt is full code, vegan diet, NKA and on fall/seizure precautions. No reported seizure history. No significant PMH. Pt is on a modified Ativan taper that started on 05/15/17, tolerating well. VTE score 2, pumps in place. Pt presented with anxiety, restless legs, intermittent tremors, difficulty sleeping, increased HR and BP, fatigue, dysphoria and anhedonia. Pt also complained of chronic back pain 01/30. Scheduled medications and PRN Baclofen, Benadryl, Clonidine and Vistaril administered, effective in S/S of withdrawal as verbalized by pt. Last CIWA 3 at 0000. Pt slept 8 hours. Intake 400 ml, void x 3, stool x 0. Safety measures in place. Call light within reach. Pts needs have been met. Endorsed to day shift nurse.
[2017-05-17 08:00] VITALS: BP 149/111
[2017-05-17] MEDS: FOLIC ACID 1 MG TABLET PO SCH (08:31)
[2017-05-17] MEDS: GABAPENTIN 400 MG CAPSULE PO SCH ×3 (08:31→20:31)
[2017-05-17] MEDS: BACLOFEN 20 MG TABLET PO PRN ×2 (08:31→20:31)
[2017-05-17] MEDS: THIAMINE HCL 100 MG TABLET PO SCH (08:31)
[2017-05-17] MEDS: LORAZEPAM 1 MG TABLET PO SCH ×3 (08:31→20:31)
[2017-05-17] MEDS: AMLODIPINE 5 MG TABLET PO SCH (08:31)
[2017-05-17] MEDS: MULTIVITAMINS,THERAPEUTIC TABLET PO SCH (08:31)
[2017-05-17] MEDS: OSELTAMIVIR PHOSPHATE 75 MG CAPSULE PO SCH (08:31)
[2017-05-17] MEDS: KETOROLAC TROMETHAMINE 15 MG INJ IM PRN ×2 (08:31→20:36)
--- NOTE | 2017-05-17 08:31 | NUR ---
Clonidine 0.1mg/Baclofen 20 mg/Toradol 15 mg IM given: Patient noted with BP 149/111, Pulse 78. Noted with complain of 9/10 anxiety, pain of 9/10 generalized but more on lower legs. Also complains of restless legs. Denies any complains of headache, dizzinesss an/or chest pain. Medicated patient with Clonidine 0.1mg PO, Baclofen 20 mg PO and Toradol 15 mg IM as ordered. Will monitor for effectiveness.
[2017-05-17] MEDS: CLONIDINE HCL 0.1 MG TABLET PO PRN (08:32)
[2017-05-17] MEDS ORDERED: LORAZEPAM 1 MG TABLET PO SCH (09:00)
--- NOTE | 2017-05-17 09:01 | NUR ---
Re-assessment: Toradol 15 mg IM Per patient, PRN Toradol was effective in reducing patient' pain. PL 4/10 at this time.
--- NOTE | 2017-05-17 09:31 | NUR ---
Re-assessment: Clonidine/Baclofen Per patient, PL 08/30. PRN Baclofen effective in reducing pain and spasms. BP 135/91. Pulse 82. PRN Clonidine effective in reducing patient's blood pressure.
[2017-05-17 12:00] VITALS: BP 135/95
[2017-05-17] MEDS: METHOCARBAMOL 750 MG TABLET PO PRN (14:08)
--- NOTE | 2017-05-17 14:08 | NUR ---
Robaxin 750 mg PO given: patient noted with complain of 5/10 lower leg myalgia. Non-pharmacological interventions given but ineffective. Medicated patient with Robaxin 750 mg PO as ordered. Will monitor for effectiveness.
--- NOTE | 2017-05-17 15:08 | NUR ---
Re-assessment: Per patient, BARBARA Maaxin was effective in reducing pain. Addendum: 05/17/17 at 1543 [address]MA PANG LVN PL 07/02
--- NOTE | 2017-05-17 15:09 | NUR ---
Transfer of Care: Care transferred to receiving nurse. All pertinent information discussed including Dx, code status, PRNs given, taper orders, and VS.
--- NOTE | 2017-05-17 15:10 | NUR ---
NURSING NOTES: rECEIVED ROPORT AND ASSUMING PT'S CARE, PT IS AMBULATORY, GOES TO ACTIVITIES, NO C/O DISCOMFORT AT THIS TIME.
[2017-05-17 16:43] VITALS: BP 131/105
--- NOTE | 2017-05-17 18:08 | NUR ---
END NURSES NOTES: COMPLIENT WITH MEDS, GOES TO PATIO BREAKS, EPISODES OF ANXIETY AT TIMES, WILL CONTINUE SAME TX.
--- NOTE | 2017-05-17 19:30 | NUR ---
START OF SHIFT Pt is a 67 y/o male admitted on 05/12/17 for ETOH dependence and occasional oxycodone use. Pt was dependent on 1 bottle of white wine daily for 2 years. Pt is full code, vegan diet, NKA and on fall/seizure precautions. No reported seizure history. No significant PMH. Pt is on a modified Ativan taper that started on 05/15/17, tolerating well. Last CIWA 7 and PRN Clonidine, Baclofen, Toradol and Robaxin administered during day shift. VTE score 2, pumps in place. Upon assessment pt presents with anxiety, restless legs, pins and needles sensations in legs, flushed skin, difficulty sleeping, increased HR and BP, fatigue, dysphoria and anhedonia. Pt also complains of chronic back pain 01/30. Medications due. Denies N/V/D. Denies chest pain or SOB. Respirations even and unlabored. Safety measures in place. Call light within reach. Will continue to monitor.
[2017-05-17 20:00] VITALS: BP 165/117
[2017-05-17] MEDS: diphenhydrAMINE 50 MG CAPSULE PO PRN (20:31)
[2017-05-17] MEDS: hydrALAZINE HCL 50 MG TABLET PO PRN (20:35)
--- NOTE | 2017-05-17 20:35 | NUR ---
PRN BENADRYL BACLOFEN, TORADOL INJ AND HYDRALAZINE ADMINISTRATION Pt requests sleep aid. Pt presents with muscle spasms and severe pain in lower back. BP 165/117, orders to give Hydralazine. Safety measures in place. Call light within reach. Will continue to monitor.
[2017-05-17 21:35] VITALS: BP_SYST 135; BP_DIAS 100; BP_DIAS 99
--- NOTE | 2017-05-17 21:35 | NUR ---
PRN BENADRYL, BACLOFEN, TORADOL INJ AND HYDRALAZINE REASSESSMENT Pt is still awake but reports feeling more fatigued. Pt reports improvement in muscle spasms and pain in lower back to tolerable level, Baclofen and Toradol effective. BP 136/99 HR 91, Hydralazine effective. Safety measures in place. Call light within reach. Will continue to monitor.
[2017-05-18] VITALS: BP 136/81
--- NOTE | 2017-05-18 | NUR ---
CIWA DEFERRED Pt is laying in bed with eyes closed, CIWA deferred, to be assessed when pt is awake per orders. Respirations 15, even and unlabored. Safety measures in place. Call light within reach. Will continue to monitor.
[2017-05-18] MEDS: HYDROXYZINE PAMOATE 25 MG CAPSULE PO PRN ×2 (00:43→12:35)
--- NOTE | 2017-05-18 00:43 | NUR ---
RENÉN VISTARIL ADMINISTRATION Pt reports that he woke up with anxiety and restlessness. Safety measures in place. Call light within reach. Will continue to monitor.
--- NOTE | 2017-05-18 01:43 | NUR ---
PRN VISTARIL REASSESSMENT Pt is laying in bed with eyes closed, respirations 16, even and unlabored. Safety measures in place. Call light within reach. Will continue to monitor.
--- NOTE | 2017-05-18 04:00 | NUR ---
CIWA DEFERRED Pt is laying in bed with eyes closed, CIWA deferred, to be assessed when pt is awake per orders. Respirations 16, even and unlabored. Safety measures in place. Call light within reach. Will continue to monitor. Addendum: 05/18/17 at 0504 by JOSE MARTIN REESE RN VITALS REFUSED AT 0400
--- NOTE | 2017-05-18 07:15 | NUR ---
END OF SHIFT Pt is a 67 y/o male admitted on 05/12/17 for ETOH dependence and occasional oxycodone use. Pt was dependent on 1 bottle of white wine daily for 2 years. Pt is full code, vegan diet, NKA and on fall/seizure precautions. No reported seizure history. No significant PMH. Pt is on a modified Ativan taper that started on 05/15/17, tolerating well. VTE score 2, pumps in place. Pt presented with anxiety, restless legs, pins and needles sensations in legs, flushed skin, difficulty sleeping, increased HR and BP, fatigue. Pt also complained of chronic back pain 01/30. Scheduled medications and PRN Benadryl, Baclofen, Toradol, Hydralazine and Vistaril administered, effective in managing S/S of withdrawal and chronic back pain as verbalized by pt. Last CIWA 7 at 1999. Pt slept 6 hours. Intake 2710 ml, void x 4, stool x 1. Safety measures in place. Call light within reach. Pts needs have been met. Endorsed to day shift nurse.
--- NOTE | 2017-05-18 07:43 | NUR ---
START OF SHIFT Rcvd endorsement from ongoing nurse, client is in room, he is a/ox4, he presents with anxious mood, irritable, tremors felt, not observed. He reports feeling tired, due to an inability to sleep last night, the pins and needle feeling on BLE kept him up. He denies any SI/HI. Encourage client to increase PO fluid intake to facilitate detox. Encourage client to attend group therapy for skills to maintain sober. Client is a 70 y/o male admitted to [facility] for withdrawal from alcohol, he is on a modified 8 day Ativan taper, tolerating well, (day 7). PRN Benadryl 50mg PO for sleep aid, Baclofen 20mg PO for muscle spasms, Toradol 15mg IM for severe pain in lower back. Hydralazine 50mg PO for BP 165/117, noted effective, client slept 6 hrs. LBM 05/17/17. Client reports NKA, Full code, and vegetarian lactoovo diet. Side rails x 2 up/padded. Bed in lowest/locked position. Call light within reach.
[2017-05-18 08:02] VITALS: BP 155/102
[2017-05-18] MEDS: LORAZEPAM 1 MG TABLET PO SCH ×2 (08:15→20:30)
[2017-05-18] MEDS: GABAPENTIN 400 MG CAPSULE PO SCH ×3 (08:15→20:30)
[2017-05-18] MEDS: MULTIVITAMINS,THERAPEUTIC TABLET PO SCH (08:15)
[2017-05-18] MEDS: AMLODIPINE 5 MG TABLET PO SCH (08:16)
[2017-05-18] MEDS: FOLIC ACID 1 MG TABLET PO SCH (08:16)
[2017-05-18] MEDS: hydrALAZINE HCL 50 MG TABLET PO PRN ×2 (08:16→16:49)
[2017-05-18] MEDS: OSELTAMIVIR PHOSPHATE 75 MG CAPSULE PO SCH (08:16)
[2017-05-18] MEDS: KETOROLAC TROMETHAMINE 15 MG INJ IM PRN ×3 (08:17→20:30)
--- NOTE | 2017-05-18 08:17 | NUR ---
PRN Toradol 15mg IM, Hydralazine 50mg PO administered for low back pain 01/30 and BP 155/102. Call light within reach.
--- NOTE | 2017-05-18 08:47 | NUR ---
Reassessment PRN Toradol 15mg IM for low back pain 07/02, but tolerable. Call light within reach.
[2017-05-18] MEDS: THIAMINE HCL 100 MG TABLET PO SCH (09:00)
--- NOTE | 2017-05-18 09:17 | NUR ---
Reassessment PRN Hydralazine 50mg PO BP 132/92. Call light within reach.
[2017-05-18 12:35] VITALS: BP 167/107
[2017-05-18] MEDS: CLONIDINE HCL 0.1 MG TABLET PO PRN (12:35)
[2017-05-18] MEDS: ACETAMINOPHEN 325 MG TABLET PO PRN (12:35)
[2017-05-18] MEDS: METHOCARBAMOL 750 MG TABLET PO PRN (12:35)
--- NOTE | 2017-05-18 12:35 | NUR ---
PRN Tylenol 650mg PO, Robaxin 750mg PO, Clonidine 0.1mg PO, Vistaril 25mg PO administered for lower back pain 01/30, DIPIKA with muscle pain 01/30, BP 167/107, and anxiety respectively. Call light within reach.
--- NOTE | 2017-05-18 13:35 | NUR ---
Reassessment PRN Tylenol 650mg PO, Robaxin 750mg PO, Clonidine 0.1mg PO, Vistaril 25mg PO, client reports some relief from lower back pain 2/10, DIPIKA with muscle pain 2/10,but tolerable, BP 135/99, he appears less anxious. Call light within reach.
--- NOTE | 2017-05-18 14:29 | NUR ---
PRN Toradol 15mg IM administered for low back pain 01/30. Call light within reach.
--- NOTE | 2017-05-18 14:54 | NUR ---
THerapist prompted client to come to group today. Client agreed.
--- NOTE | 2017-05-18 14:59 | NUR ---
Reassessment PRN Toradol 15mg IM for low back pain 07/02, but tolerable. Call light within reach.
[2017-05-18 16:40] VITALS: BP 156/102
--- NOTE | 2017-05-18 16:49 | NUR ---
PRN Hydralazine 50mg PO administered for BP 156/102. Call light within reach.
--- NOTE | 2017-05-18 17:49 | NUR ---
Reassessment PRN Hydralazine 50mg PO, BP 134/92. Call light within reach.
--- NOTE | 2017-05-18 19:28 | NUR ---
END OF SHIFT Client is a 70 y/o male, he is a/o X 4, admitted to [facility] for withdrawal from alcohol, he is on a 8 day Ativan taper, tolerating well, (day 7). VTE 2, IPCD at bedside, client is compliant with therapy. PRN Toradol 15mg IM (x 2), Hydralazine 50mg PO (x 2) administered for low back pain 9/10 and BP 155/10, Tylenol 650mg PO, Robaxin 750mg PO, Clonidine 0.1mg PO, Vistaril 25mg PO administered for lower back pain 9/10, DIPIKA with muscle pain 9/10, BP 167/107, and anxiety, noted effective. Client is compliant with medication administration and group therapy. Adequate PO fluid intake 3100mL, void x 5, stool x 1. Client consumes 75-100% of meals. Client reports NKA, Full code, and vegetarian lactoovo diet. Side rails x 2 up/padded. Bed in lowest/locked position. Call light within reach.
--- NOTE | 2017-05-18 19:30 | NUR ---
START OF SHIFT Pt is a 67 y/o male admitted on 05/12/17 for ETOH dependence and occasional oxycodone use. Pt was dependent on 1 bottle of white wine daily for 2 years. Pt is full code, vegan diet, NKA and on fall/seizure precautions. No reported seizure history. No significant PMH. Pt is on a modified Ativan taper that started on 05/15/17, tolerating well. Last CIWA 6 and PRN Clonidine, Toradol x 2, Hydralazine x 2 and Vistaril administered during day shift. VTE score 2, pumps in place. Upon assessment pt presents with anxiety, agitation, restless legs, pins and needles sensations in legs, flushed skin, difficulty sleeping, increased HR and BP, fatigue. Pt also complains of chronic back pain 01/30. Medications due. Denies N/V/D. Denies chest pain or SOB. Respirations even and unlabored. Denies SI/HI. Safety measures in place. Call light within reach. Will continue to monitor.
[2017-05-18 20:00] VITALS: BP 163/105
[2017-05-18] MEDS: BACLOFEN 20 MG TABLET PO PRN (20:30)
[2017-05-18] MEDS: CLONIDINE HCL 0.1 MG TABLET PO SCH (20:30)
[2017-05-18] MEDS: diphenhydrAMINE 50 MG CAPSULE PO PRN (20:30)
--- NOTE | 2017-05-18 20:30 | NUR ---
PRN TORADOL INJ, BACLOFEN AND BENADRYL ADMINISTRATION Pt reports severe pain and muscle spasms in lower back that radiates to legs. Pt also requests sleep aid. Safety measures in place. Call light within reach. Will continue to monitor.
--- NOTE | 2017-05-18 21:30 | NUR ---
PRN TORADOL INJ, BACLOFEN AND BENADRYL REASSESSMENT Pt reports improvement in lower back muscle spasms and pain in back/legs overall to tolerable level. Pt remains awake at this time, but is more fatigued. Will continue to monitor. Safety measures in place. Call light within reach.
[2017-05-19] VITALS (7 sets, daily range): BP systolic 100–144; BP diastolic 68–99
--- NOTE | 2017-05-19 | NUR ---
CIWA DEFERRED Pt is laying in bed with eyes closed, CIWA deferred, to be assessed when pt is awake per orders. Respirations 16, even and unlabored. Safety measures in place. Call light within reach. Will continue to monitor.
[2017-05-19] MEDS: HYDROXYZINE PAMOATE 25 MG CAPSULE PO PRN ×2 (02:18→21:29)
[2017-05-19] MEDS: CLONIDINE HCL 0.1 MG TABLET PO PRN (02:19)
--- NOTE | 2017-05-19 02:19 | NUR ---
PRN VISTARIL AND CLONIDINE ADMINISTRATION Pt woke up with anxiety and restlessness. Vitals taken, BP 118/94 HR 78, orders to give Clonidine for BP 140-149/90-99. Safety measures in place. Call light within reach. Will continue to monitor.
--- NOTE | 2017-05-19 03:19 | NUR ---
PRN CLONIDINE AND VISTARIL REASSESSMENT Pt is laying in bed with eyes closed, Vistaril effective, pt does not present with anxiety. BP 100/68, Clonidine effective in reducing BP. Safety measures in place. Call light within reach. Will continue to monitor.
--- NOTE | 2017-05-19 07:30 | NUR ---
END OF SHIFT Pt is a 67 y/o male admitted on 05/12/17 for ETOH dependence and occasional oxycodone use. Pt was dependent on 1 bottle of white wine daily for 2 years. Pt is full code, vegan diet, NKA and on fall/seizure precautions. No reported seizure history. No significant PMH. Pt is on a modified Ativan taper that started on 05/15/17, tolerating well. VTE score 2, pumps in place. Pt presented with anxiety, agitation, restless legs, pins and needles sensations in legs, flushed skin, difficulty sleeping, increased HR and BP, fatigue. Pt also complains of chronic back pain 01/30. Scheduled medications and PRN Toradol inj, Baclofen, Benadryl, Vistaril and Clonidine administered, effective in managing S/S of withdrawal and chronic back pain as verbalized by pt. last CIWA 8 at 1999. Pt slept 5 hours. Intake 2000 ml, void x 6, stool x 3. Safety measures in place. Call light within reach. Pts needs have been met. Endorsed to day shift nurse.
--- NOTE | 2017-05-19 07:50 | NUR ---
START OF SHIFT Rcvd endorsement from ongoing nurse, client is in room, he is a/ox4, he presents with anxious mood. He reports feeling a little bit better, but his chronic lower back pain 01/30 is acting up again. He refused Ibuprofen at this time, stating, "I am going to wait for the Toradol Inj, that medicine helps a lot with my pain." He reports restless legs. He denies any SI/HI. Encourage client to increase PO fluid intake to facilitate detox. Encourage client to attend group therapy for skills to maintain sober. Client is a 70 y/o male admitted to [facility] for withdrawal from alcohol, he is on a modified 8 day Ativan taper, tolerating well, (day 8). Last CIWA 6 @ 1999. PRN Benadryl 50mg PO for sleep aid, Baclofen 20mg PO for muscle spasms, Toradol 15mg IM for severe pain in lower back, Clonidine 0.1mg PO BP 118/94, Vistaril 25mg PO for anxiety,noted effective, client slept 5 hrs. LBM 05/18/17. Client reports NKA, Full code, and vegetarian lactoovo diet. Side rails x 2 up/padded. Bed in lowest/locked position. Call light within reach.
[2017-05-19] MEDS: KETOROLAC TROMETHAMINE 15 MG INJ IM PRN ×3 (08:34→21:30)
[2017-05-19] MEDS: GABAPENTIN 400 MG CAPSULE PO SCH ×3 (08:34→21:29)
[2017-05-19] MEDS: MULTIVITAMINS,THERAPEUTIC TABLET PO SCH (08:34)
[2017-05-19] MEDS: OSELTAMIVIR PHOSPHATE 75 MG CAPSULE PO SCH (08:34)
--- NOTE | 2017-05-19 08:34 | NUR ---
PRN Toradol 15mg IM administered for low back pain 01/30. Call light within reach.
[2017-05-19] MEDS: CLONIDINE HCL 0.1 MG TABLET PO SCH ×2 (08:35→21:29)
[2017-05-19] MEDS: THIAMINE HCL 100 MG TABLET PO SCH (08:35)
[2017-05-19] MEDS: AMLODIPINE 5 MG TABLET PO SCH (08:35)
[2017-05-19] MEDS: FOLIC ACID 1 MG TABLET PO SCH (08:35)
[2017-05-19] MEDS ORDERED: LORAZEPAM 1 MG TABLET PO SCH (09:00)
--- NOTE | 2017-05-19 09:04 | NUR ---
Reassessment PRN Toradol 15mg IM for low back pain 0/10. Call light within reach.
[2017-05-19] MEDS: ACETAMINOPHEN 325 MG TABLET PO PRN (12:15)
--- NOTE | 2017-05-19 12:15 | NUR ---
PRN Tylenol 650mg PO for low back pain 01/30. Call light within reach.
--- NOTE | 2017-05-19 12:15 | NUR ---
Reassessment PRN Toradol 15mg IM for low back pain . Call light within reach. Addendum: 05/19/17 at 1848 by TOM LIM RN in error
--- NOTE | 2017-05-19 13:15 | NUR ---
Reassessment PRN Tylenol 650mg PO, client reports temporary relief from for low back pain 0/10. Call light within reach.
--- NOTE | 2017-05-19 14:54 | NUR ---
PRN Toradol 15mg IM administered for low back pain 01/30. Call light within reach
--- NOTE | 2017-05-19 15:19 | NUR ---
Therapist prompted client to come to group today. Client Agreed to come to.
--- NOTE | 2017-05-19 15:24 | NUR ---
Reassessment PRN Toradol 15mg IM for low back pain 0/10. Call light within reach.
--- NOTE | 2017-05-19 16:55 | NUR ---
Client report pain 9/10 on lower back and BLE, but declines Tylenol at this time.
--- NOTE | 2017-05-19 19:15 | NUR ---
Start of Shift Patient Received. Patient is in activities room participating in a group meeting. Patient is a 67 year old male admitted on 05/12/17 for ETOH and Opiate Dependence under the care of Dr. Silva. Patient continues on a modified Ativan taper. Patient verbalizes no known allergies, wishes to be full code, following a Regular Diet, placed on fall and seizure precautions, and skin noted intact. Per endorsement, patient was given PRN Toradol x2 and Tylenol with Medications noted to be effective. Last noted CIWA 5. All needs attended to promptly. Will continue to plan of care as ordered. Addendum: 05/20/17 at 0213 by YVON KERNS LVN Amended: Links added.
[2017-05-19] MEDS: diphenhydrAMINE 50 MG CAPSULE PO PRN (21:29)
[2017-05-19] MEDS: BACLOFEN 20 MG TABLET PO PRN (21:29)
--- NOTE | 2017-05-19 21:30 | NUR ---
PRN Medication Administration Patient is noted verbalizing increased pain 9/10 to lower back and muscle spasms in lower extremities. PRN Baclofen and PRN Toradol administered as per order. Will continue to monitor.
--- NOTE | 2017-05-19 22:30 | NUR ---
PRN Medication Reassessment Patient is noted in bed sleeping. Breathing even and non labored. Patient was given PRN Toradol and Baclofen for increased pain and muscle spasms with medication noted to be effective. No facial grimacing, restlessness, or discomfort noted. Will continue to monitor.
[2017-05-20] VITALS (7 sets, daily range): BP systolic 129–160; BP diastolic 86–99
[2017-05-20] MEDS: METHOCARBAMOL 750 MG TABLET PO PRN ×2 (05:04→20:59)
[2017-05-20] MEDS: HYDROXYZINE PAMOATE 25 MG CAPSULE PO PRN ×2 (05:04→13:10)
--- NOTE | 2017-05-20 05:15 | NUR ---
PRN Medication Administration Patient noted awake and verbalizing increased anxiety and increased muscle spams. PRN Vistaril and Robaxin administered as per order. will continue to monitor.
--- NOTE | 2017-05-20 06:08 | NUR ---
PRN Medication Reassessment Patient noted in bed sleeping. Breathing even and non labored. No signs of discomfort noted. No signs of restlessness. PRN Vistaril and Robaxin noted to be effective. Will continue to monitor.
--- NOTE | 2017-05-20 07:22 | NUR ---
End of Shift Patient is in bed sleeping. Breathing even and non labored. Patient is a 67 year old male admitted on 05/12/17 for ETOH and Opiate Dependence under the care of Dr. Silva. Patient continues on a modified Ativan taper. No Known Allergies, Full Code, following a Regular Diet, placed on fall and seizure precautions, and skin noted intact. Patient was given PRN Baclofen, Toradol, Vistarilx2, Benadryl, and Robaxin with all medications noted to be effective. Last noted CIWA 7. All needs attended to promptly. Will endorse to continue to plan of care as ordered.
--- NOTE | 2017-05-20 08:00 | NUR ---
Start of Shift Patient Receive. Patient is a 67 year old male admitted on 05/12/17 for ETOH and Opiate Dependence under the care of Dr. Silva. Patient continues on a modified Ativan taper. Patient verbalizes no known allergies, wishes to be full code, following a Regular Diet, placed on fall and seizure precautions, and skin noted intact. Per endorsement, patient was given PRN Toradol x`1. noted to be effective. Last noted CIWA 7. All needs attended to promptly. Will continue to plan of care as ordered.
--- NOTE | 2017-05-20 08:20 | NUR ---
PRN 20MG BACLOFEN GIVEN FOR MUSCLE ACHES, WILL MONITOR FOR EFFECTIVENESS
--- NOTE | 2017-05-20 08:20 | NUR ---
PRN PRN TORADOL 15MG IM GIVEN IN LEFT DELTOID PER PT REQUEST FOR 9/10 PAIN IN LOWER BACK AND LEGS, WILL MONITOR EFFECTIVENESS WITHIN 1 HOUR.
[2017-05-20] MEDS: THIAMINE HCL 100 MG TABLET PO SCH (08:22)
[2017-05-20] MEDS: GABAPENTIN 400 MG CAPSULE PO SCH (08:22)
[2017-05-20] MEDS: MULTIVITAMINS,THERAPEUTIC TABLET PO SCH (08:22)
[2017-05-20] MEDS: BACLOFEN 20 MG TABLET PO PRN ×2 (08:23→13:10)
[2017-05-20] MEDS: AMLODIPINE 5 MG TABLET PO SCH (08:23)
[2017-05-20] MEDS: KETOROLAC TROMETHAMINE 15 MG INJ IM PRN ×3 (08:24→20:59)
[2017-05-20] MEDS: CLONIDINE HCL 0.1 MG TABLET PO SCH ×3 (09:09→20:59)
[2017-05-20] MEDS: FOLIC ACID 1 MG TABLET PO SCH (09:09)
--- NOTE | 2017-05-20 09:20 | NUR ---
RE ASSESSMENT TORADOL EFFECTIVE IN DECREASING BACK AND LEG PAIN FROM 01/30-09/29, WILL CONTINUE TO MONITOR
--- NOTE | 2017-05-20 09:20 | NUR ---
PRN ASSESS BACLOFEN EFFECTIVE IN RELIEVING PATIENTS MUSCLE ACHES FROM PAIN SCALE 9/10-5/10
[2017-05-20] MEDS: ACETAMINOPHEN 325 MG TABLET PO PRN (09:35)
--- NOTE | 2017-05-20 09:35 | NUR ---
PRN PRN 650 MG TYLENOL GIVEN PER PATIENT REQUEST FOR BACK PAIN 09/29, WILL RE ASSESS WITHIN 1 HOUR
--- NOTE | 2017-05-20 10:31 | NUR ---
PRN REASSESS PATIENT STATES PAIN IS RELIEVED TO 3/10 FROM 10, WILL CONTINUE TO MONITOR
[2017-05-20] MEDS ORDERED: LORAZEPAM 1 MG TABLET PO PRN ×2 (11:15)
[2017-05-20] MEDS ORDERED: LOSARTAN POTASSIUM 50 MG TABLET PO ONE (13:00)
--- NOTE | 2017-05-20 13:10 | NUR ---
PRN PRN VISTARIL GIVEN FOR PAIN 01/30, WILL REASSESS WITHIN 1 HOUR
--- NOTE | 2017-05-20 13:25 | NUR ---
PRN 1MG ATIVAN PO PRN GIVEN FOR CIWA SCORE OF 6
--- NOTE | 2017-05-20 14:09 | NUR ---
PRN REASSESS PATIENT STILL C/O LOWER BACK PAIN AT 6/10 PAIN LEVEL, WILL GIVE PRN TORADOL AT 1430 AND CONTINUE TO MONITOR
--- NOTE | 2017-05-20 14:11 | NUR ---
RE ASSESS PRN PT STATES ANXIETY IS LESS BUT LOWER BACK PAIN IS STILL AN ISSUE, WILL ADMINISTER TORADOL AT 1430. Addendum: 05/20/17 at 1412 by GEOVANNI LAN RN LISA SCORE = 5
[2017-05-20] MEDS: GABAPENTIN 300 MG CAPSULE PO SCH ×2 (14:27→20:59)
--- NOTE | 2017-05-20 14:30 | NUR ---
PRN 15MG PRN TORADOL IM ADMINISTERED RIGHT DELTOID, PAIN 01/30, WILL CONTINUE TO MONITOR AND REASSESS. Addendum: 05/20/17 at 1519 by GEOVANNI LAN RN LISA=5
--- NOTE | 2017-05-20 15:30 | NUR ---
PRN REASSESS: PATIENT STATES PAIN IS LESS NOW AND FEELS LESS ACHY, /10, WILL CONTINUE TO MONITOR
--- NOTE | 2017-05-20 18:45 | NUR ---
End of Shift Patient is a 67 year old male admitted on 05/12/17 for ETOH and Opiate Dependence under the care of Dr. Silva. Patient continues on a modified Ativan taper. No Known Allergies, Full Code, following a Regular Diet, placed on fall and seizure precautions, and skin noted intact. Patient was given PRN Baclofen, Toradol, Vistaril, tylenol, and ativan with all medications noted to be effective. Last noted CIWA 5. Patient appears to still be anxious frequently but understands the purpose of his medication taper. All needs attended to promptly. Will endorse to continue to plan of care as ordered.
--- NOTE | 2017-05-20 19:20 | NUR ---
Start of Shift Patient Received. Patient is in activities room participating in a group meeting. Patient is a 67 year old male admitted on 05/12/17 for ETOH and Opiate Dependence under the care of Dr. Silva. Patient was evaluated by MD with taper medication extended. No Known Allergies, Full Code, following a Regular Diet, placed on fall and seizure precautions, and skin noted intact. Per endorsement, patient was given PRN Toradol, Tylenol, baclofen, and Vistaril with medications noted to be effective. Last noted CIWA 5. All needs attended to promptly. Will continue to plan of care as ordered.
[2017-05-20] MEDS: diphenhydrAMINE 50 MG CAPSULE PO PRN (20:59)
[2017-05-20] MEDS ORDERED: LORAZEPAM 1 MG TABLET PO ONE (21:00)
--- NOTE | 2017-05-20 21:00 | NUR ---
PRN Medication Administration Patient is noted verbalizing increased muscle spasms, increased lower back pain of 9/10, and inability of falling asleep. PRN Toradol, Robaxin, and Benadryl administered as per order. Will continue to monitor.
--- NOTE | 2017-05-20 22:00 | NUR ---
PRN Medication Reassessment Patient is noted in bed sleeping. Breathing even and non labored. No facial grimacing noted. No restlessness or discomfort noted. patient was given PRN Toradol, Robaxin and Benadryl with medications noted to be effective. Will continue to monitor.
[2017-05-21 00:26] VITALS: BP 121/91
[2017-05-21 04:15] VITALS: BP 117/79
[2017-05-21] MEDS: METHOCARBAMOL 750 MG TABLET PO PRN ×3 (05:45→22:05)
[2017-05-21] MEDS: HYDROXYZINE PAMOATE 25 MG CAPSULE PO PRN ×3 (05:46→22:01)
--- NOTE | 2017-05-21 05:48 | NUR ---
PRN Medication Administration Patient is noted awake and verbalizing increased anxiety and muscle spasms to the lower back. PRN Vistaril and Robaxin administered. Will continue to monitor.
--- NOTE | 2017-05-21 07:04 | NUR ---
End of Shift Patient is in bed sleeping. Breathing even and non labored. No signs of pain or discomfort noted. Patient is a 67 year old male admitted on 05/12/17 for ETOH and Opiate Dependence and continues on a modified Ativan taper. No Known Allergies, Full Code, following a Regular Diet, placed on fall and seizure precautions, and skin noted intact. Patient was given PRN Benadryl, Robaxinx2, Toradol, and Vistaril with medications noted to be effective. Last noted CIWA 7. All needs attended to promptly. Will endorse to continue to plan of care as ordered.
--- NOTE | 2017-05-21 07:58 | NUR ---
BEGINNING OF SHIFT Patient endorsement report received from furnace repairer helper nurse, all pertinent information discussed. patient admitted on: 05/12/2017 with admitting Dx: etoh dependence, with substance use of: Oxycodone. patient continues on modified ativan taper as ordered. Per furnace repairer helper patient with last ciwa score of: 7. Patient slept for 7 hours, received PRN: Benadryl, Robaxin x2, Toradol and Vistaril. Patient received awake, in room. Educated regarding plan of care for the day and medication regimen with good verbal understanding, Safety measures in place. Will continue to monitor closely. Safety measures in place.
[2017-05-21 08:55] VITALS: BP 147/92
[2017-05-21] MEDS: LOSARTAN POTASSIUM 50 MG TABLET PO SCH (08:57)
[2017-05-21] MEDS: GABAPENTIN 300 MG CAPSULE PO SCH ×3 (08:57→20:29)
[2017-05-21] MEDS: MULTIVITAMINS,THERAPEUTIC TABLET PO SCH (08:57)
[2017-05-21] MEDS: CLONIDINE HCL 0.1 MG TABLET PO SCH ×3 (08:57→20:29)
[2017-05-21] MEDS: THIAMINE HCL 100 MG TABLET PO SCH (08:58)
[2017-05-21] MEDS: FOLIC ACID 1 MG TABLET PO SCH (08:58)
[2017-05-21] MEDS: BACLOFEN 20 MG TABLET PO PRN ×2 (08:58→20:29)
[2017-05-21] MEDS: AMLODIPINE 5 MG TABLET PO SCH (08:58)
[2017-05-21] MEDS: KETOROLAC TROMETHAMINE 15 MG INJ IM PRN ×2 (09:00→20:30)
--- NOTE | 2017-05-21 09:00 | NUR ---
PRN BACLOFEN/TORADOL Patient c/o severe pain 9/10 to back and bilateral legs. provided patient with non pharmacological interventions with no relief, administered Baclofen and Toradol injection as ordered, will monitor effectiveness of medication.
--- NOTE | 2017-05-21 09:30 | NUR ---
TORADOL REASSESSMENT Patient reports medication is helping, decrease in pain level, current pain level of: 6/10. will continue to monitor.
--- NOTE | 2017-05-21 10:00 | NUR ---
BACLOFEN REASSESSMENT Patient reports muscle ache pain is decreasing, current generalized pain level is at 4/10, per patient medications are helping.
[2017-05-21] MEDS ORDERED: NAPHAZOLINE/PHENIR OPHT DROP 15 ML BOTTLE EACHEYE PRN (11:00)
[2017-05-21] MEDS ORDERED: GABA-534 PO (12:10)
[2017-05-21] MEDS ORDERED: IBUP-1955 PO (12:10)
[2017-05-21] MEDS ORDERED: HYDR-3895 PO (12:10)
[2017-05-21] MEDS ORDERED: CLON0.1T14 PO (12:10)
[2017-05-21] MEDS ORDERED: METH-406 PO (12:10)
[2017-05-21] MEDS ORDERED: DIPH50CA37 PO (12:10)
[2017-05-21] MEDS ORDERED: AMLO5TAB2 PO (12:10)
[2017-05-21] MEDS ORDERED: LOSA50TA3 PO (12:10)
[2017-05-21] MEDS: hydrALAZINE HCL 50 MG TABLET PO PRN (12:50)
--- NOTE | 2017-05-21 12:50 | NUR ---
PRN HYDRALAZINE Administered hydralazine for bp: 168/108 heart rate: 91. will monitor closely.
[2017-05-21 12:51] VITALS: BP 168/108
[2017-05-21] MEDS: ACETAMINOPHEN 325 MG TABLET PO PRN (12:57)
--- NOTE | 2017-05-21 12:57 | NUR ---
PRN TYLENOL Patient c/o back ache 09/29, administered Tylenol as ordered, will monitor effectiveness of medication.
--- NOTE | 2017-05-21 13:50 | NUR ---
HYDRALAZINE REASSESSMENT medication effective, decrease in blood pressure to: 155/96. will continue to monitor, patient denies any H/A or chest pain.
--- NOTE | 2017-05-21 13:57 | NUR ---
TYLENOL REASSESSMENT patient reports pain in back is decreasing current back pain level of 3/10, tolerable as per patient, will continue to monitor.
--- NOTE | 2017-05-21 14:05 | NUR ---
PRN VISTARIL/ROBAXIN Patient c/o increase in anxiety, also c/o muscle aches, administered Vistaril and Robaxin as ordered, will monitor effectiveness of medication. will continue to monitor.
--- NOTE | 2017-05-21 15:05 | NUR ---
VISTARIL/ROBAXIN REASSESSMENT Patient reports feeling less anxious, feels "more calm" patient also reports no longer has muscle aches. will continue to monitor.
[2017-05-21 16:53] VITALS: BP 101/80
--- NOTE | 2017-05-21 18:56 | NUR ---
End of Shift Patient is awake, and alert oriented x4, compliant with therapeutic plan of care. Patient is a 67 year old male admitted on 05/12/17 for ETOH and Opiate Dependence under the care of Dr. Silva. Patient completed modified Ativan taper, and is scheduled to be discharged tomorrow, noted self motivated towards sobriety. fall and seizure precautions observed at all times,skin noted intact. Patient was given PRN : Tylenol, Hydralazine, Baclofen, Toradol, Vistaril, and Robaxin all as ordered, with all medications noted to be effective. Detox medications effective, 0900 CIWA: 6; 1300 CIWA: 6. Last noted CIWA 5,. All needs Met and rendered, safety precautions observed at all times. Will endorse patient to shift mgr nurse, all pertinent information discussed.
--- NOTE | 2017-05-21 19:20 | NUR ---
START OF SHIFT Patient is a 67-year-old male admitted on 05/12/17 for ETOH (white wine) dependence with concurrent oxycodone use (occasionally for the last 2 years). Patient denies past medical history with exception to surgical history on his right great toe. Patient is FULL code, NKA to food or drugs, currently on a vegan diet. Patient is on fall and seizure precautions with no history of seizures. Patient has completed a modified Ativan taper, tolerated well, scheduled for discharge tomorrow. Upon assessment, patient is alert and oriented x4, skin intact, complaining of pain on his lower left side, 9/10 on pain scale. Patient states pain is continuous, radiating and aching with some muscle spasms. Safety measures in place, bed locked in low position, side rails up x2, call light within reach. Will continue to monitor.
[2017-05-21 20:00] VITALS: BP 120/88
--- NOTE | 2017-05-21 20:30 | NUR ---
PRN BACLOFEN PO AND TORADOL IM Patient reports sharp, radiating pain for both lower extremities, 9/10 on pain scale. Patient reports pain is accompanied with muscle spasm. PRN Baclofen given PO, Toradol given IM in right dorsogluteal; patient tolerated well. Safety measures in place, call light within reach. Will reassess and continue to monitor.
--- NOTE | 2017-05-21 21:00 | NUR ---
PRN TORADOL REASSESSMENT Patient reports pain has improved, 4/10 on pain scale. PRN Toradol effective. Safety measures in place, call light within reach. Will continue to monitor.
--- NOTE | 2017-05-21 21:30 | NUR ---
PRN BACLOFEN REASSESSMENT Patient reports improvement in muscle spasms, PRN Baclofen effective. Safety measures in place, call light within reach. Will continue to monitor.
[2017-05-21] MEDS: diphenhydrAMINE 50 MG CAPSULE PO PRN (22:01)
--- NOTE | 2017-05-21 22:05 | NUR ---
PRN ROBAXIN, VISTARIL, AND BENADRYL Patient reports that pain is increasing, as well as his anxiety. Patient also reports difficulty sleeping. PRN Robaxin, Vistaril, and Benadryl given PO. Safety measures in place, call light within reach. Will continue to monitor.
--- NOTE | 2017-05-21 23:05 | NUR ---
PRN ROBAXIN, VISTARIL, AND BENADRYL REASSESSMENT Patient is resting in bed with eyes closed, verbally responsive. Patient states he feels sleepy, more relaxed and pain has improved. PRN medications effective. Safety measures in place, call light within reach. Will continue to monitor.
--- NOTE | 2017-05-22 | NUR ---
MIDNIGHT VITALS REFUSED, CIWA DEFERRED Patient refused midnight vitals, CIWA deferred due to patient sleeping; to be assessed and scored while patient is awake. Safety measures in place, side rails up x2, bed locked in low position, call light within reach. Will continue to monitor.
[2017-05-22 04:00] VITALS: BP 111/77
[2017-05-22] MEDS: HYDROXYZINE PAMOATE 25 MG CAPSULE PO PRN (04:15)
[2017-05-22] MEDS: BACLOFEN 20 MG TABLET PO PRN (04:15)
--- NOTE | 2017-05-22 04:15 | NUR ---
PRN BACLOFEN AND VISTARIL Patient reports increased anxiety and muscle spasm pain 12/30. PRN Baclofen and Vistaril given PO. Safety measures in place, call light within reach. Will reassess in one hour.
--- NOTE | 2017-05-22 05:15 | NUR ---
PRN BACLOFEN AND VISTARIL REASSESSMENT Patient is resting in bed with eyes closed, respirations 16/min, even and unlabored. PRN medications effective. Safety measures in place, side rails up x2, bed locked in low position, call light within reach. Will continue to monitor.
--- NOTE | 2017-05-22 07:15 | NUR ---
END OF SHIFT Patient is a 67-year-old male admitted on 05/12/17 for ETOH (white wine) dependence with concurrent oxycodone use (occasionally for the last 2 years). Patient denies past medical history with exception to surgical history on his right great toe. Patient is FULL code, NKA to food or drugs, currently on a vegan diet. Patient is on fall and seizure precautions with no history of seizures. Patient has completed a modified Ativan taper, tolerated well, scheduled for discharge today. Patient slept for 6 hours, total intake of 1,105 mL, void x4, stool x0. Patient received the following PRNs: Baclofen, Toradol (right dorsogluteal), Robaxin, Vistaril, and Benadryl. PRN medications were effective. Last CIWA was 6. Safety measures in place, bed locked in low position, side rails up x2, call light within reach. Will endorse to day shift.
--- NOTE | 2017-05-22 07:30 | NUR ---
START OF SHIFT NOTE Received report from night nurse, 67-year-old male admitted for ETOH dependence. Patient denies any PMH. Per endorsement pt received PRN'S medications effective per night nurse. Last CIWA was 6, slept for 6 hours. Patient received awake, alert and oriented x4. Patient was educated regarding plan of care for the day and medication regimen. Safety measures in place. Call light with in reach. Will continue to monitor.
[2017-05-22 08:00] VITALS: BP 140/99
[2017-05-22] MEDS: MULTIVITAMINS,THERAPEUTIC TABLET PO SCH (08:39)
[2017-05-22] MEDS: THIAMINE HCL 100 MG TABLET PO SCH (08:39)
[2017-05-22] MEDS: FOLIC ACID 1 MG TABLET PO SCH (08:39)
[2017-05-22] MEDS: GABAPENTIN 300 MG CAPSULE PO SCH (08:39)
[2017-05-22] MEDS: CLONIDINE HCL 0.1 MG TABLET PO SCH (08:40)
[2017-05-22] MEDS: LOSARTAN POTASSIUM 50 MG TABLET PO SCH (08:40)
[2017-05-22] MEDS: METHOCARBAMOL 750 MG TABLET PO PRN (08:50)
--- NOTE | 2017-05-22 08:50 | NUR ---
PRN Robaxin Patient was c/o muscle spasms, PRN Robaxin 750mg PO as ordered, will cont to monitor for effectiveness.
[2017-05-22] MEDS ORDERED: AMLODIPINE 10 MG TABLET PO SCH (09:00)
--- NOTE | 2017-05-22 09:50 | NUR ---
ROBAXIN REASSESSMENT Per pt medication was effective muscle cramps subside.
[2017-05-22] MEDS: KETOROLAC TROMETHAMINE 15 MG INJ IM PRN (11:20)
--- NOTE | 2017-05-22 11:20 | NUR ---
PRN TORADOL Patient c/o of bilateral legs pain 01/30, PRN Toradol 15mg IM given as ordered. Will cont to monitor for effectiveness.
--- NOTE | 2017-05-22 11:50 | NUR ---
TORADOL REASSESSMENT Per pt medication was effective pain decreased to 2/10.
[2017-05-22 12:00] VITALS: BP 139/79
--- NOTE | 2017-05-22 13:28 | NUR ---
DISCHARGE NOTE Patient is in stable condition. Vital signs WNL,Patient is alert oriented x4, Skin intact warm and dry to touch. Patient denies any SI/HI ideations. All discharge paper work done signed and dated. Patient educated about discharge instructions, Pt verbalized understanding. Patient 's last CIWA score was 2. Patient discharged from [facility] on 05/22/17 at 1328. Patient left the building with all of his belongings and prescriptions and medications returned to the pt. MD has been contracted and notified of Pt's discharge.
== END 2017-05-22 13:28 | disposition other institution (70) | DRG 895 ==
LOC: EDBD 02:36 → SRC 02:36
PROVIDERS: ADMIT Internal Medicine; ATTEND Internal Medicine
PROC: HZ2ZZZZ Detoxification Services for Substance Abuse Treatment (ICD-10-PCS; principal; 2017-05-12)
PROC: HZ31ZZZ Individual Counseling for Substance Abuse Treatment, Behavioral (ICD-10-PCS; 2017-05-14)
PROC: HZ41ZZZ Group Counseling for Substance Abuse Treatment, Behavioral (ICD-10-PCS; 2017-05-15)
DX: F10.230 Alcohol dependence with withdrawal, uncomplicated (principal); A53.0 Latent syphilis, unspecified as early or late; I15.9 Secondary hypertension, unspecified; Y90.7 Blood alcohol level of 200-239 mg/100 ml; F17.210 Nicotine dependence, cigarettes, uncomplicated; Z82.3 Family history of stroke; F11.10 Opioid abuse, uncomplicated
CPT/HCPCS: 36415; 70030-TC; 80307; 83690; 83735; 84443; 85025; 86580; 86592; 86705; 86780; 86803; 87340; 87806; G0480; J1885; J3420; Q0163